=== PATIENT | male | born 1970 | race Caucasian/White ===

== ENCOUNTER 2022-01-01 22:21 | Emergency (ER) | payer MEDICAID ==
[2022-01-01] MEDS ORDERED: Ondansetron 4 MG/2 ML SDV IVPUSH ONE (22:29)
[2022-01-01] MEDS ORDERED: Lactated Ringers 1,000 ML IV ONE (22:30)
[2022-01-01] MEDS ORDERED: Morphine 4 MG/ML Syringe IVPUSH ONE (22:36)
[2022-01-01 23:18] LABS: ESTIMATED GFR 112 mL/min (>60)
[2022-01-02] MEDS ORDERED: HYDROmorphone 0.5 MG/0.5 ML Syringe IVPUSH ONE (00:07)
[2022-01-02] MEDS ORDERED: Lactated Ringers 1,000 ML IV ONE (00:16)
[2022-01-02] MEDS ORDERED: HYDROmorphone 1 MG/ML Syringe IVPUSH ONE (00:17)
[2022-01-02] MEDS ORDERED: Iopamidol 612 MG/ML 100 ML Bottle IV STA (00:17)
[2022-01-02] MEDS ORDERED: Sodium Chloride 0.9% 50 ML IV STA (00:17)
[2022-01-02] MEDS ORDERED: Potassium Chloride 20 MEQ Tab.ER PO ONE (01:59)
[2022-01-02] MEDS ORDERED: Pantoprazole 40 MG Tab.CR PO SCH (02:00)
== END 2022-01-02 02:20 | disposition home or self-care (01) ==
LOC: JP.ED 22:21
DX: K86.1 Other chronic pancreatitis (principal); E11.65 Type 2 diabetes mellitus with hyperglycemia; K59.00 Constipation, unspecified; F10.920 Alcohol use, unspecified with intoxication, uncomplicated; Z79.899 Other long term (current) drug therapy
CPT/HCPCS: 36415; 74177; 80053; 80305; 80307; 81003; 82009; 82803; 83690; 85025; 96361; 96374; 96375; 99284; J1170; J2270; J2405; J3490; J7120; Q9967; 99283

== ENCOUNTER 2022-01-03 15:56 | Emergency (ER) | payer MEDICAID ==
[2022-01-03] MEDS ORDERED: Sodium Chloride 0.9% 10 ML Syringe FLUSH PRN (17:36)
[2022-01-03] MEDS ORDERED: HYDROmorphone 1 MG/ML Syringe IVPUSH ONE (17:37)
[2022-01-03] MEDS ORDERED: Ondansetron 4 MG/2 ML SDV IVPUSH ONE (17:37)
[2022-01-03] MEDS ORDERED: Sodium Chloride 0.9% 1,000 ML IV ONE (17:37)
[2022-01-03 18:14] LABS: ESTIMATED GFR 112 mL/min (>60)
[2022-01-03] MEDS ORDERED: HYDROmorphone 0.5 MG/0.5 ML Syringe IVPUSH ONE (19:48)
[2022-01-03] MEDS ORDERED: Ketorolac 30 MG/ML SDV IVPUSH ONE (19:50)
[2022-01-03] MEDS ORDERED: Pantoprazole 40 MG Tab.CR PO SCH (20:00)
== END 2022-01-03 20:25 | disposition home or self-care (01) ==
LOC: JP.ED 15:56
DX: K86.0 Alcohol-induced chronic pancreatitis (principal); F10.129 Alcohol abuse with intoxication, unspecified; S00.03XA Contusion of scalp, initial encounter; Y90.4 Blood alcohol level of 80-99 mg/100 ml; R10.13 Epigastric pain; E11.9 Type 2 diabetes mellitus without complications; Z79.84 Long term (current) use of oral hypoglycemic drugs
CPT/HCPCS: 36415; 70450; 80053; 80307; 83690; 85025; 96361; 96374; 96375; 96376; 99284; 99285; A9270; J1170; J1885; J2405; J3490; J7030

== ENCOUNTER 2022-02-05 12:54 | Emergency (ER) | payer MEDICAID ==
[2022-02-05] MEDS ORDERED: Sodium Chloride 0.9% 500 ML IV ONE (15:39)
[2022-02-05] MEDS ORDERED: Sodium Chloride 0.9% 10 ML Syringe FLUSH PRN (15:39)
[2022-02-05] MEDS ORDERED: Ondansetron 4 MG/2 ML SDV IVPUSH ONE (15:39)
[2022-02-05] MEDS ORDERED: HYDROmorphone 1 MG/ML Syringe IVPUSH ONE ×2 (15:39→17:45)
[2022-02-05] MEDS ORDERED: Famotidine 20 MG/2 ML SDV IVPUSH ONE (15:39)
[2022-02-05 16:18] LABS: ESTIMATED GFR 107 mL/min (>60)
[2022-02-05 16:23] LABS: TROPONIN I HIGH SENSITIVITY 5.8 pg/mL (<=60.3)
[2022-02-05] MEDS ORDERED: Alum Hydrox/Mag Hydrox/Simeth 15 ML, Lidocaine 2% 15 ML PO ONE ×2 (16:36)
[2022-02-05] MEDS ORDERED: Ketorolac 30 MG/ML SDV IVPUSH ONE (16:36)
[2022-02-05] MEDS ORDERED: Metoclopramide 10 MG/2 ML SDV IVPUSH ONE (17:45)
[2022-02-05] MEDS ORDERED: Sodium Chloride 0.9% 1,000 ML IV SCH (18:00)
== END 2022-02-05 18:41 | disposition home or self-care (01) ==
LOC: JP.ED 12:54
DX: K86.1 Other chronic pancreatitis (principal); E11.9 Type 2 diabetes mellitus without complications; Z79.899 Other long term (current) drug therapy; Z79.84 Long term (current) use of oral hypoglycemic drugs
CPT/HCPCS: 36415; 80053; 82150; 83690; 84484; 85025; 93005; 96374; 96375; 96376; 99284; A9270; J1170; J1885; J2405; J2765; J3490; J7040; 93010; 99283

== ENCOUNTER 2022-02-06 17:16 | Emergency (ER) | payer MEDICAID ==
[2022-02-06] MEDS ORDERED: Haloperidol Lactate 5 MG/ML SDV IVPUSH ONE (17:49)
[2022-02-06] MEDS ORDERED: HYDROmorphone 1 MG/ML Syringe IVPUSH ONE (17:49)
[2022-02-06] MEDS ORDERED: Sodium Chloride 0.9% 1,000 ML IV SCH (18:00)
[2022-02-06 18:22] LABS: ESTIMATED GFR 107 mL/min (>60)
== END 2022-02-06 18:50 | disposition left against medical advice (07) ==
LOC: JP.ED 17:16
DX: K86.1 Other chronic pancreatitis (principal); R11.2 Nausea with vomiting, unspecified; E11.65 Type 2 diabetes mellitus with hyperglycemia; F17.210 Nicotine dependence, cigarettes, uncomplicated; Z79.899 Other long term (current) drug therapy; Z79.84 Long term (current) use of oral hypoglycemic drugs; Z86.16 Personal history of COVID-19; Z20.822 Contact with and (suspected) exposure to COVID-19
CPT/HCPCS: 36415; 36600; 80053; 81001; 82009; 82803; 83690; 85025; 87635; 96361; 96374; 96375; 99284; J1170; J1630; J7030; U0002

== ENCOUNTER 2022-02-18 07:31 | Day surgery (SDC) | payer MEDICAID ==
[~2022-02-18 07:31] MED LIST: Lactated Ringers 1,000 ML IV SCH
[2022-02-18] MEDS ORDERED: Midazolam 1 MG/ML 2 ML SDV ONE (08:04)
[2022-02-18] MEDS ORDERED: Propofol 200 MG/20 ML SDV ONE (08:04)
[2022-02-18] MEDS ORDERED: fentaNYL 100 MCG/2 ML SDV ONE (08:04)
[2022-02-18] MEDS ORDERED: Dextrose 5%-Lactated Ringers 1,000 ML IV SCH (08:15)
== END 2022-02-18 11:10 | disposition home or self-care (01) ==
LOC: JP.SDS 07:31
PROVIDERS: ATTEND Family Medicine
DX: K92.1 Melena (principal); K29.60 Other gastritis without bleeding; E11.9 Type 2 diabetes mellitus without complications; E78.5 Hyperlipidemia, unspecified; F41.1 Generalized anxiety disorder
CPT/HCPCS: 43235; 45378; J2250; J2704; J3010; J7121

== ENCOUNTER 2022-03-18 17:23 | Emergency (ER) | payer MEDICAID ==
[2022-03-18] MEDS ORDERED: Sodium Chloride 0.9% 10 ML Syringe FLUSH PRN (19:15)
[2022-03-18] MEDS ORDERED: Sodium Chloride 0.9% 1,000 ML IV STA (19:15)
[2022-03-18] MEDS ORDERED: Ondansetron 4 MG/2 ML SDV IVPUSH ONE (19:16)
[2022-03-18] MEDS ORDERED: HYDROmorphone 1 MG/ML Syringe IVPUSH ONE ×2 (19:16→21:34)
[2022-03-18] MEDS ORDERED: Sodium Chloride 0.9% 75 ML IV SCH (19:45)
[2022-03-18] MEDS ORDERED: Iopamidol 612 MG/ML 100 ML Bottle IV SCH (19:45)
[2022-03-18 20:02] LABS: ESTIMATED GFR 107 mL/min (>60); TROPONIN I HIGH SENSITIVITY 5.1 pg/mL (<=60.3)
[2022-03-18] MEDS ORDERED: Prochlorperazine 10 MG/2 ML SDV IVPUSH ONE (21:34)
== END 2022-03-18 22:35 | disposition home or self-care (01) ==
LOC: JP.ED 17:23
DX: R10.13 Epigastric pain (principal); E11.9 Type 2 diabetes mellitus without complications; I10 Essential (primary) hypertension; F41.9 Anxiety disorder, unspecified; Z79.4 Long term (current) use of insulin
CPT/HCPCS: 36415; 74177; 80053; 80307; 83605; 83690; 84484; 85025; 96361; 96374; 96375; 96376; 99284; J0780; J1170; J2405; J3490; J7030; Q9967

== ENCOUNTER 2022-05-06 17:09 | Emergency (ER) | payer MEDICAID ==
[2022-05-06] MEDS ORDERED: Ketorolac 30 MG/ML SDV IVPUSH ONE (19:35)
[2022-05-06 20:06] LABS: ESTIMATED GFR 107 mL/min (>60)
== END 2022-05-06 20:17 | disposition left against medical advice (07) ==
LOC: JP.ED 17:09
DX: R10.84 Generalized abdominal pain (principal); R11.2 Nausea with vomiting, unspecified; E11.9 Type 2 diabetes mellitus without complications; F17.210 Nicotine dependence, cigarettes, uncomplicated
CPT/HCPCS: 36415; 80053; 83690; 85025; 99284

== ENCOUNTER 2022-05-13 05:51 | Day surgery (SDC) | payer MEDICAID ==
[2022-05-13] MEDS ORDERED: Sodium Chloride 0.9% 1,000 ML IV SCH (06:30)
[2022-05-13] MEDS ORDERED: Lidocaine 1% with EPINEPHrine 1:100,000 50 ML MDV ONE (06:42)
[2022-05-13] MEDS ORDERED: Bupivacaine 0.5% 50 ML MDV ONE (06:42)
[2022-05-13 07:09] LABS: ESTIMATED GFR 73 mL/min (>60)
[2022-05-13] MEDS ORDERED: metroNIDAZOLE/Normal Saline 500 MG in Premix Bag 1 BAG IV ONE (07:30)
[2022-05-13] MEDS ORDERED: ceFAZolin 2 GM in Sodium Chloride 0.9% 50 ML IV ONE (07:30)
[2022-05-13] MEDS ORDERED: Glycopyrrolate 0.2 MG/ML 5 ML MDV ONE (07:31)
[2022-05-13] MEDS ORDERED: Neostigmine Methylsulfate 1 MG/ML 5 ML Syringe ONE (07:31)
[2022-05-13] MEDS ORDERED: Dexamethasone 4 MG/ML SDV ONE (07:31)
[2022-05-13] MEDS ORDERED: Succinylcholine 200 MG/10 ML MDV ONE (07:31)
[2022-05-13] MEDS ORDERED: Rocuronium 50 MG/5 ML Vial ONE (07:31)
[2022-05-13] MEDS ORDERED: fentaNYL 250 MCG/5 ML SDV ONE (07:31)
[2022-05-13] MEDS ORDERED: Propofol 200 MG/20 ML SDV ONE (07:31)
[2022-05-13] MEDS ORDERED: Ondansetron 4 MG/2 ML SDV ONE (07:31)
[2022-05-13] MEDS ORDERED: Ropivacaine 32 ML, dexAMETHasone 8 MG, EPINEPHrine 0.4 MG, Sodium Chloride 0.9% 45.6 ML NERVRT SCH ×4 (07:45)
[2022-05-13] MEDS ORDERED: Scopolamine 1.5 MG Transdermal Patch TOP SCH (08:00)
[2022-05-13] MEDS ORDERED: Phenylephrine 1% 10 MG/ML SDV ONE (08:06)
[2022-05-13] MEDS ORDERED: hydrOXYzine HCL 100 MG/2 ML SDV IM ONE (09:16)
[2022-05-13] MEDS ORDERED: fentaNYL 50 MCG/ML SDV IVPUSH ONE (09:16)
[2022-05-13] MEDS ORDERED: Acetaminophen/HYDROcodone 325-5 MG Tab PO ONE (10:03)
== END 2022-05-13 10:45 | disposition home or self-care (01) ==
LOC: JP.SDS 05:51 → EEVIPCON 11:00
PROVIDERS: ATTEND Surgery
DX: K80.10 Calculus of gallbladder with chronic cholecystitis without obstruction (principal); E78.5 Hyperlipidemia, unspecified; K21.9 Gastro-esophageal reflux disease without esophagitis; E11.9 Type 2 diabetes mellitus without complications; Z79.899 Other long term (current) drug therapy
CPT/HCPCS: 36415; 47562; 80053; 82947; 85027; A9270; J0171; J0330; J0690; J1100; J2370; J2405; J2704; J2710; J2795; J3010; J3410; J3490; J7030; 88304

== ENCOUNTER 2022-07-14 11:39 | Emergency (ER) | payer MEDICAID ==
[2022-07-14] MEDS ORDERED: Ondansetron 4 MG/2 ML SDV IVPUSH ONE (12:04)
[2022-07-14] MEDS ORDERED: HYDROmorphone 1 MG/ML Syringe IVPUSH ONE (12:04)
[2022-07-14] MEDS ORDERED: Sodium Chloride 0.9% 1,000 ML IV ONE (12:07)
[2022-07-14] MEDS: Sodium Chloride 0.9% 10 ML Syringe FLUSH PRN ×2 (12:20→12:25)
[2022-07-14] MEDS ORDERED: Iopamidol 612 MG/ML 100 ML Bottle IV ONE (12:28)
[2022-07-14] MEDS ORDERED: Sodium Chloride 0.9% 50 ML IV SCH (12:30)
[2022-07-14 12:42] LABS: ESTIMATED GFR 107 mL/min (>60)
[2022-07-14] MEDS ORDERED: Prochlorperazine 10 MG/2 ML SDV IVPUSH ONE (12:42)
[2022-07-14] MEDS ORDERED: Magnesium Sulfate/Water 2 GM in Premix Bag 1 BAG IV ONE (12:44)
[2022-07-14] MEDS ORDERED: Lidocaine 1% PF 2 ML SDV IV SCH (12:45)
[2022-07-14] MEDS ORDERED: Potassium Chloride 20 MEQ in Premix Bag 1 BAG IV SCH (13:00)
[2022-07-14] MEDS ORDERED: Ketorolac 30 MG/ML SDV IVPUSH ONE (13:05)
[2022-07-14] MEDS: Potassium Chloride 10 MEQ in Premix Bag 1 BAG IV SCH ×4 (13:47→18:04)
== END 2022-07-14 19:09 | disposition home or self-care (01) ==
LOC: JP.ED 11:39
DX: K86.1 Other chronic pancreatitis (principal); E86.0 Dehydration; E87.5 Hyperkalemia; R11.2 Nausea with vomiting, unspecified; E11.9 Type 2 diabetes mellitus without complications; E78.00 Pure hypercholesterolemia, unspecified; F17.210 Nicotine dependence, cigarettes, uncomplicated; Z86.16 Personal history of COVID-19; Z20.822 Contact with and (suspected) exposure to COVID-19
CPT/HCPCS: 36415; 74177; 80053; 81001; 83605; 83690; 83735; 85025; 87635; 96361; 96365; 96366; 96367; 96368; 96375; 99284; J0780; J1170; J1885; J2405; J3475; J3480; J3490; J7030; Q9967; U0002

== ENCOUNTER 2022-10-01 08:45 | Day surgery (SDC) | payer MEDICAID ==
[2022-10-01] MEDS ORDERED: Midazolam 1 MG/ML 2 ML SDV ONE (08:46)
[2022-10-01] MEDS ORDERED: fentaNYL 100 MCG/2 ML SDV ONE (08:46)
[2022-10-01] MEDS ORDERED: Propofol 200 MG/20 ML SDV ONE (08:46)
[2022-10-01] MEDS ORDERED: Sodium Chloride 0.9% 1,000 ML IV SCH (09:15)
== END 2022-10-01 11:03 | disposition home or self-care (01) ==
LOC: JP.SDS 08:45
PROVIDERS: ATTEND Surgery
DX: Z12.11 Encounter for screening for malignant neoplasm of colon (principal); E11.9 Type 2 diabetes mellitus without complications; E78.5 Hyperlipidemia, unspecified; Z79.899 Other long term (current) drug therapy
CPT/HCPCS: 45378; J2250; J2704; J3010; J7030

== ENCOUNTER 2022-10-25 09:13 | Observation (INO) | payer MEDICAID ==
[2022-10-25] MEDS ORDERED: Ondansetron 4 MG/2 ML SDV IVPUSH ONE (09:46)
[2022-10-25] MEDS ORDERED: Sodium Chloride 0.9% 1,000 ML IV SCH ×2 (10:00→11:30)
[2022-10-25] MEDS: Sodium Chloride 0.9% 10 ML Syringe FLUSH PRN ×5 (10:06→13:02)
[2022-10-25 10:29] LABS: ESTIMATED GFR 91 mL/min (>60)
[2022-10-25] MEDS ORDERED: Potassium Chloride 10 MEQ in Premix Bag 1 BAG IV ONE (10:41)
[2022-10-25] MEDS ORDERED: Potassium Chloride 20 MEQ Tab.ER PO ONE (10:42)
[2022-10-25 10:50] LABS: CORONAVIRUS COVID-19 NAA NEGATIVE (NEGATIVE)
[2022-10-25] MEDS ORDERED: HYDROmorphone 0.5 MG/0.5 ML Syringe IVPUSH ONE (10:56)
[2022-10-25] MEDS ORDERED: Iopamidol 612 MG/ML 100 ML Bottle IV PRN (11:04)
[2022-10-25] MEDS ORDERED: Sodium Chloride 0.9% 10 ML SDV FLUSH ONE (11:04)
[2022-10-25] MEDS ORDERED: Sodium Chloride 0.9% 100 ML IV SCH (11:15)
[2022-10-25] MEDS ORDERED: Haloperidol Lactate 5 MG/ML SDV IVPUSH ONE (12:38)
[2022-10-25] MEDS ORDERED: HYDROmorphone 1 MG/ML Syringe IVPUSH ONE (12:44)
[2022-10-25] MEDS ORDERED: LORazepam 2 MG/ML SDV IV PRN (13:50)
[2022-10-25] MEDS ORDERED: Ondansetron 4 MG/2 ML SDV IV PRN (13:50)
[2022-10-25] MEDS ORDERED: Sodium Chloride 0.9% 10 ML Syringe FLUSH PRN (13:50)
[2022-10-25] MEDS ORDERED: 50% Dextrose in Water 50 ML Syringe IV PRN (13:50)
[2022-10-25] MEDS ORDERED: Acetaminophen 325 MG Tab PO PRN (13:50)
[2022-10-25] MEDS ORDERED: 50% Dextrose in Water 50 ML Syringe IVPUSH PRN (13:50)
[2022-10-25] MEDS ORDERED: Glucagon,Human Recombinant 1 MG Vial IM PRN (13:50)
[2022-10-25] MEDS ORDERED: Glucose Gel 15 GM in 37.5 GM Tube PO PRN (13:50)
[2022-10-25] MEDS ORDERED: Diclofenac Sodium 1% Gel 100 GM Tube TOP PRN (13:50)
[2022-10-25] MEDS ORDERED: HYDROmorphone 0.5 MG/0.5 ML Syringe IVPUSH PRN (14:14)
[2022-10-25] MEDS ORDERED: Nicotine Polacrilex 2 MG Gum CHEW PRN (14:14)
[2022-10-25] MEDS: Sodium Chloride 0.9% 1,000 ML IV SCH ×2 (14:15→21:31)
[2022-10-25] MEDS: Pregabalin 75 MG Cap PO SCH ×2 (14:21→21:26)
[2022-10-25] MEDS: Potassium Chloride 10 MEQ in Premix Bag 1 BAG IV SCH ×4 (15:16→17:23)
[2022-10-25] MEDS: Nicotine 14 MG/24 Hr Patch TRDERM SCH (15:16)
[2022-10-25] MEDS: oxyCODONE 5 MG Tab PO PRN (15:23)
[2022-10-25] MEDS ORDERED: Enoxaparin 40 MG/0.4 ML Syringe SUBCUT SCH (16:00)
[2022-10-25] MEDS: Pantoprazole 40 MG Tab.CR PO SCH (16:26)
[2022-10-25] MEDS: Insulin Lispro 100 Unit/ML 3 ML KwikPen SUBCUT SCH ×2 (17:25→21:27)
[2022-10-25] MEDS: Amylase/Lipase/Protease 12,000 Unit Cap.CR PO SCH (17:25)
[2022-10-25] MEDS ORDERED: Insulin Glargine,Human Rec. Analog 100 Units/ML 3 ML Pen SUBCUT SCH (21:00)
[2022-10-25] MEDS: Morphine 15 MG Tab.ER PO SCH (21:26)
[2022-10-26] MEDS: oxyCODONE 5 MG Tab PO PRN ×2 (04:59→11:41)
[2022-10-26] MEDS: Sodium Chloride 0.9% 1,000 ML IV SCH (06:28)
[2022-10-26] MEDS: Insulin Lispro 100 Unit/ML 3 ML KwikPen SUBCUT SCH ×2 (07:29→11:40)
[2022-10-26] MEDS: Amylase/Lipase/Protease 12,000 Unit Cap.CR PO SCH ×2 (07:32→11:42)
[2022-10-26] MEDS: Pantoprazole 40 MG Tab.CR PO SCH (07:32)
[2022-10-26] MEDS: Morphine 15 MG Tab.ER PO SCH (08:21)
[2022-10-26] MEDS: Pregabalin 75 MG Cap PO SCH (08:21)
[2022-10-26] MEDS: Nicotine 14 MG/24 Hr Patch TRDERM SCH (08:21)
== END 2022-10-26 13:55 | disposition home or self-care (01) ==
LOC: JP.ED 09:13 → JP.MS 13:06
PROVIDERS: ADMIT Hospitalist; ATTEND Hospitalist
DX: K52.9 Noninfective gastroenteritis and colitis, unspecified (principal); E87.6 Hypokalemia; E78.00 Pure hypercholesterolemia, unspecified; E11.40 Type 2 diabetes mellitus with diabetic neuropathy, unspecified; Z79.899 Other long term (current) drug therapy; F41.9 Anxiety disorder, unspecified; F17.210 Nicotine dependence, cigarettes, uncomplicated; Z87.19 Personal history of other diseases of the digestive system; Z79.4 Long term (current) use of insulin; Z20.822 Contact with and (suspected) exposure to COVID-19
CPT/HCPCS: 0241U; 36415; 74177; 80048; 80053; 81001; 82009; 82803; 82947; 83605; 83690; 85025; 86140; 96361; 96365; 96366; 96372; 96375; 96376; 99222; 99238; 99285; A9270; G0378; J1170; J1630; J1650; J1815; J2405; J3480; J3490; J7030; Q9967

== ENCOUNTER 2022-11-08 19:22 | Emergency (ER) | payer MEDICAID ==
[2022-11-08] MEDS ORDERED: Sodium Chloride 0.9% 10 ML Syringe FLUSH PRN (20:10)
[2022-11-08] MEDS ORDERED: HYDROmorphone 1 MG/ML Syringe IVPUSH ONE (20:11)
[2022-11-08] MEDS ORDERED: Ondansetron 4 MG/2 ML SDV IVPUSH ONE ×2 (20:11→22:25)
[2022-11-08] MEDS ORDERED: Lactated Ringers 1,000 ML IV SCH (20:15)
[2022-11-08 20:43] LABS: ESTIMATED GFR 103 mL/min (>60)
[2022-11-08] MEDS ORDERED: HYDROmorphone 0.5 MG/0.5 ML Syringe IVPUSH ONE (22:03)
[2022-11-08] MEDS ORDERED: fentaNYL 12 MCG/HR Transdermal Patch TRDERM SCH (22:15)
== END 2022-11-08 22:48 | disposition home or self-care (01) ==
LOC: JP.ED 19:22
DX: R10.9 Unspecified abdominal pain (principal); G89.29 Other chronic pain; E11.40 Type 2 diabetes mellitus with diabetic neuropathy, unspecified; Z86.16 Personal history of COVID-19; Z72.0 Tobacco use; Z79.4 Long term (current) use of insulin
CPT/HCPCS: 36415; 80053; 81001; 83605; 83690; 85025; 96361; 96374; 96375; 96376; 99284; A9270; J1170; J2405; J3490; J7120; 99283

== ENCOUNTER 2022-11-18 08:07 | Day surgery (SDC) | payer MEDICAID ==
[2022-11-18] MEDS ORDERED: Sodium Chloride 0.9% 1,000 ML IV SCH (09:00)
[2022-11-18] MEDS ORDERED: Midazolam 1 MG/ML 2 ML SDV ONE (09:40)
[2022-11-18] MEDS ORDERED: fentaNYL 50 MCG/ML SDV ONE (09:40)
[2022-11-18] MEDS ORDERED: Propofol 200 MG/20 ML SDV ONE (09:40)
[2022-11-18] MEDS ORDERED: Morphine 2 MG/ML SYRINGE IVPUSH PRN (10:50)
== END 2022-11-18 11:30 | disposition home or self-care (01) ==
LOC: JP.SDS 08:07
PROVIDERS: ATTEND Surgery
DX: K31.84 Gastroparesis (principal); K29.70 Gastritis, unspecified, without bleeding; K21.00 Gastro-esophageal reflux disease with esophagitis, without bleeding; K22.89 Other specified disease of esophagus; I95.9 Hypotension, unspecified; E11.9 Type 2 diabetes mellitus without complications
CPT/HCPCS: 43239; 88305; J2250; J2270; J2704; J3010; J7030

== ENCOUNTER 2023-04-18 15:05 | Emergency (ER) | payer MEDICAID, OTHER ==
[2023-04-18] MEDS ORDERED: Sodium Chloride 0.9% 10 ML Syringe FLUSH PRN (15:31)
[2023-04-18 15:46] LABS: BASOPHILS ABSOLUTE AUTO 0.07 K/uL (0.00-0.10); BASOPHILS PERCENT AUTO 0.6 % (0.1-1.3); EOSINOPHILS ABSOLUTE AUTO 0.13 K/uL (0.00-0.40); EOSINOPHILS PERCENT AUTO 1.2 % (0.0-5.4); HEMATOCRIT 44.7 % (38.4-49.7); IMMATURE GRAN ABSOLUTE AUTO 0.03 K/uL (0.00-0.23); IMMATURE GRAN PERCENT AUTO 0.3 % (0.0-0.7); LYMPHOCYTES ABSOLUTE AUTO 1.99 K/uL (0.8-3.3); LYMPHOCYTES PERCENT AUTO 18.1 % (11.4-47.7); MEAN CORPUSCULAR HEMOGLOBIN 30.5 pg (31.6-35.5); MEAN CORPUSCULAR HGB CONC 33.6 g/dL (31.6-35.5); MONOCYTES ABSOLUTE AUTO 0.87 K/uL (0.20-0.90); MONOCYTES PERCENT AUTO 7.9 % (3.3-12.6); NEUTROPHILS ABSOLUTE AUTO 7.89 K/uL (1.0-7.6); NEUTROPHILS PERCENT AUTO 71.9 % (40.0-78.1); PLATELET COUNT,PLT 255 K/uL (130-375); RED BLOOD CELL COUNT 4.91 M/uL (4.14-5.76)
[2023-04-18] MEDS: Metoclopramide 10 MG/2 ML SDV IVPUSH ONE (15:51)
[2023-04-18 16:07] LABS: A/G RATIO 1.2 (1.2-2.2); ALANINE AMINOTRANSFERASE,ALT 36 U/L (12-78); ALKALINE PHOSPHATASE 127 U/L (46-116); AMYLASE 37 U/L (25-115); ANION GAP 9.5 mmol/L (5.0-14.0); ASPARTATE AMNIOTRANSFERASE,AST 24 U/L (15-37); BILIRUBIN TOTAL 0.4 mg/dL (0.2-1.0); BLOOD UREA NITROGEN,BUN 9 mg/dL (7-18); CALCIUM 9.1 mg/dL (8.5-10.1); CARBON DIOXIDE,CO2 30 mmol/L (21-32); CHLORIDE,CL 101 mmol/L (100-108); CREATININE 0.8 mg/dL (0.8-1.3); EST CRCL DRUG DOSING (CG) 97.02 mL/min; ESTIMATED GFR 106 mL/min (>60); GLUCOSE RANDOM 183 mg/dL (74-106); POTASSIUM,K 4.4 mmol/L (3.6-5.2); PROTEIN TOTAL,TP 7.4 g/dL (6.4-8.2); SODIUM,NA 140 mmol/L (140-148)
== END 2023-04-18 16:27 | disposition left against medical advice (07) ==
LOC: JP.ED 15:05
DX: K52.9 Noninfective gastroenteritis and colitis, unspecified (principal); E11.40 Type 2 diabetes mellitus with diabetic neuropathy, unspecified; Z86.16 Personal history of COVID-19; Z72.0 Tobacco use; Z79.4 Long term (current) use of insulin; Z79.899 Other long term (current) drug therapy
CPT/HCPCS: 36415; 80053; 80307; 82150; 83605; 83690; 85025; 96374; 99283; 99284; J2765; J3490

== ENCOUNTER 2024-04-16 17:51 | Emergency (ER) | payer MEDICAID, SELFPAY ==
[2024-04-16 18:52] LABS: BASOPHILS ABSOLUTE AUTO 0.04 K/uL (0.00-0.10); BASOPHILS PERCENT AUTO 0.6 % (0.1-1.3); EOSINOPHILS ABSOLUTE AUTO 0.05 K/uL (0.00-0.40); EOSINOPHILS PERCENT AUTO 0.7 % (0.0-5.4); HEMATOCRIT 39.1 % (38.4-49.7); HEMOGLOBIN 13.4 g/dL (12.9-16.9); IMMATURE GRAN PERCENT AUTO 0.3 % (0.0-0.7); LYMPHOCYTES ABSOLUTE AUTO 1.63 K/uL (0.8-3.3); LYMPHOCYTES PERCENT AUTO 24.4 % (11.4-47.7); MEAN CORPUSCULAR HGB CONC 34.3 g/dL (31.6-35.5); MEAN CORPUSCULAR VOLUME 81.8 fL (81.4-99.0); MONOCYTES ABSOLUTE AUTO 0.58 K/uL (0.20-0.90); MONOCYTES PERCENT AUTO 8.7 % (3.3-12.6); NEUTROPHILS ABSOLUTE AUTO 4.37 K/uL (1.0-7.6); NEUTROPHILS PERCENT AUTO 65.3 % (40.0-78.1); PLATELET COUNT,PLT 355 K/uL (130-375); RED BLOOD CELL COUNT 4.78 M/uL (4.14-5.76); WHITE BLOOD CELL COUNT,WBC 6.7 K/uL (3.2-11.0)
[2024-04-16] MEDS: Ketorolac 30 MG/ML SDV IM ONE (18:52)
[2024-04-16 19:08] LABS: IMMATURE GRAN ABSOLUTE AUTO 0.02 K/uL (0.00-0.23)
[2024-04-16 19:09] LABS: ANION GAP 8.3 mmol/L (5.0-14.0); C-REACTIVE PROTEIN 0.58 mg/dL (<0.50); CALCIUM 9.6 mg/dL (8.5-10.1); CREATININE 0.8 mg/dL (0.8-1.3); EST CRCL DRUG DOSING (CG) 109.62 mL/min; POTASSIUM,K 3.7 mmol/L (3.6-5.2)
[2024-04-16] MEDS ORDERED: Naloxone 0.4 MG/ML SDV IVPUSH PRN (19:56)
[2024-04-16] MEDS: HYDROmorphone 0.5 MG/0.5 ML Syringe IM ONE (20:08)
== END 2024-04-16 22:43 | disposition home or self-care (01) ==
LOC: JP.ED 17:51
DX: M17.11 Unilateral primary osteoarthritis, right knee (principal); E11.40 Type 2 diabetes mellitus with diabetic neuropathy, unspecified; E78.00 Pure hypercholesterolemia, unspecified; F17.210 Nicotine dependence, cigarettes, uncomplicated; Z86.16 Personal history of COVID-19; Z79.899 Other long term (current) drug therapy; Z79.4 Long term (current) use of insulin; Z79.82 Long term (current) use of aspirin
CPT/HCPCS: 36415; 73562; 80048; 85025; 85379; 86140; 93971; 96372; 99284; J1885

== ENCOUNTER 2024-04-17 10:46 | Emergency (ER) | payer MEDICAID ==
[2024-04-17] MEDS ORDERED: Naloxone 0.4 MG/ML SDV IVPUSH PRN (11:32)
[2024-04-17] MEDS: HYDROmorphone 1 MG/ML Syringe IM ONE (11:38)
== END 2024-04-17 11:57 | disposition home or self-care (01) ==
LOC: JP.ED 10:46
DX: M17.11 Unilateral primary osteoarthritis, right knee (principal); E78.00 Pure hypercholesterolemia, unspecified; E11.40 Type 2 diabetes mellitus with diabetic neuropathy, unspecified; Z86.16 Personal history of COVID-19; Z90.49 Acquired absence of other specified parts of digestive tract; Z79.4 Long term (current) use of insulin; Z79.82 Long term (current) use of aspirin; Z79.899 Other long term (current) drug therapy
CPT/HCPCS: 96372; 99283

== ENCOUNTER 2024-05-15 20:12 | Emergency (ER) | payer MEDICAID ==
[2024-05-15] MEDS: Sodium Chloride 0.9% 1,000 ML IV STA (20:21)
[2024-05-15] MEDS: fentaNYL 100 MCG/2 ML SDV IVPUSH ONE ×2 (20:21→21:21)
[2024-05-15 20:22] LABS: BASOPHILS ABSOLUTE AUTO 0.07 K/uL (0.00-0.10); BASOPHILS PERCENT AUTO 0.8 % (0.1-1.3); EOSINOPHILS ABSOLUTE AUTO 0.12 K/uL (0.00-0.40); EOSINOPHILS PERCENT AUTO 1.4 % (0.0-5.4); HEMATOCRIT 37.9 % (38.4-49.7); HEMOGLOBIN 12.7 g/dL (12.9-16.9); IMMATURE GRAN ABSOLUTE AUTO 0.03 K/uL (0.00-0.23); IMMATURE GRAN PERCENT AUTO 0.3 % (0.0-0.7); LYMPHOCYTES ABSOLUTE AUTO 3.34 K/uL (0.8-3.3); LYMPHOCYTES PERCENT AUTO 37.7 % (11.4-47.7); MEAN CORPUSCULAR HEMOGLOBIN 29.1 pg (31.6-35.5); MEAN CORPUSCULAR HGB CONC 33.5 g/dL (31.6-35.5); MEAN CORPUSCULAR VOLUME 86.9 fL (81.4-99.0); MONOCYTES ABSOLUTE AUTO 0.87 K/uL (0.20-0.90); MONOCYTES PERCENT AUTO 9.8 % (3.3-12.6); NEUTROPHILS ABSOLUTE AUTO 4.43 K/uL (1.0-7.6); PLATELET COUNT,PLT 282 K/uL (130-375); RED BLOOD CELL COUNT 4.36 M/uL (4.14-5.76); WHITE BLOOD CELL COUNT,WBC 8.9 K/uL (3.2-11.0)
[2024-05-15] MEDS: Sodium Chloride 0.9% 10 ML Syringe FLUSH PRN (20:24)
[2024-05-15 20:40] LABS: A/G RATIO 0.9 (1.2-2.2); ALANINE AMINOTRANSFERASE,ALT 32 U/L (12-78); ALBUMIN 3.1 g/dL (3.4-5.0); ALKALINE PHOSPHATASE 146 U/L (46-116); ASPARTATE AMNIOTRANSFERASE,AST 15 U/L (15-37); BILIRUBIN TOTAL 0.2 mg/dL (0.2-1.0); BLOOD UREA NITROGEN,BUN 10 mg/dL (7-18); CARBON DIOXIDE,CO2 29 mmol/L (21-32); CHLORIDE,CL 104 mmol/L (100-108); EST CRCL DRUG DOSING (CG) 87.69 mL/min; ESTIMATED GFR 90 mL/min (>60); GLUCOSE RANDOM 234 mg/dL (74-106); POTASSIUM,K 4.2 mmol/L (3.6-5.2); PROTEIN TOTAL,TP 6.4 g/dL (6.4-8.2); SODIUM,NA 139 mmol/L (140-148); TROPONIN I HIGH SENSITIVITY 4.3 pg/mL (<=60.3)
[2024-05-15 20:42] LABS: ANION GAP 10.2 mmol/L (5.0-14.0)
[2024-05-15] MEDS: Iopamidol 612 MG/ML 100 ML Bottle IV SCH (21:36)
[2024-05-15] MEDS: Sodium Chloride 0.9% 60 ML IV SCH (21:36)
[2024-05-15] MEDS: Sodium Chloride 0.9% 1,000 ML IV SCH (22:08)
== END 2024-05-15 23:35 | disposition home or self-care (01) ==
LOC: JP.ED 20:12
DX: K52.9 Noninfective gastroenteritis and colitis, unspecified (principal); I10 Essential (primary) hypertension; I25.10 Atherosclerotic heart disease of native coronary artery without angina pectoris; E78.00 Pure hypercholesterolemia, unspecified; E11.9 Type 2 diabetes mellitus without complications; Z90.49 Acquired absence of other specified parts of digestive tract; Z86.16 Personal history of COVID-19; Z79.899 Other long term (current) drug therapy; Z79.82 Long term (current) use of aspirin; Z79.4 Long term (current) use of insulin; Z79.891 Long term (current) use of opiate analgesic
CPT/HCPCS: 36415; 74177; 80053; 83605; 83690; 84484; 85025; 96361; 96374; 96376; 99284; 99285; J3010; J3490; J7030; Q9967

== ENCOUNTER 2024-07-02 11:56 | Emergency (ER) | payer MEDICAID ==
[2024-07-02 12:33] LABS: APPEARANCE,URINE CLEAR (CLEAR); BILIRUBIN,URINE NEGATIVE (NEGATIVE); COLOR,URINE YELLOW (YELLOW); GLUCOSE,URINE 250 mg/dL (NEGATIVE); KETONES,URINE NEGATIVE (NEGATIVE); LEUKOCYTE ESTERASE,URINE NEGATIVE (NEGATIVE); NITRITE,URINE NEGATIVE (NEGATIVE); OCCULT BLOOD,URINE NEGATIVE (NEGATIVE); PROTEIN,URINE NEGATIVE (NEGATIVE); UROBILINOGEN,URINE 0.2 EU/dL (0.2-1.0)
[2024-07-02 12:41] LABS: AMORPHOUS SEDIMENT,URINE RARE; BACTERIA,URINE NOT SEEN; EPITHELIAL CELLS,URINE NOT SEEN; MUCUS,URINE NOT SEEN; RBC,URINE NOT SEEN (0-5); WBC,URINE NOT SEEN (0-5)
[2024-07-02 12:50] LABS: BASOPHILS ABSOLUTE AUTO 0.04 K/uL (0.00-0.10); BASOPHILS PERCENT AUTO 0.6 % (0.1-1.3); EOSINOPHILS ABSOLUTE AUTO 0.12 K/uL (0.00-0.40); EOSINOPHILS PERCENT AUTO 1.8 % (0.0-5.4); HEMATOCRIT 39.2 % (38.4-49.7); HEMOGLOBIN 13.2 g/dL (12.9-16.9); IMMATURE GRAN PERCENT AUTO 0.2 % (0.0-0.7); LYMPHOCYTES ABSOLUTE AUTO 1.58 K/uL (0.8-3.3); LYMPHOCYTES PERCENT AUTO 24.2 % (11.4-47.7); MEAN CORPUSCULAR HEMOGLOBIN 29.7 pg (31.6-35.5); MEAN CORPUSCULAR HGB CONC 33.7 g/dL (31.6-35.5); MEAN CORPUSCULAR VOLUME 88.1 fL (81.4-99.0); MONOCYTES ABSOLUTE AUTO 0.61 K/uL (0.20-0.90); MONOCYTES PERCENT AUTO 9.3 % (3.3-12.6); NEUTROPHILS ABSOLUTE AUTO 4.18 K/uL (1.0-7.6); NEUTROPHILS PERCENT AUTO 63.9 % (40.0-78.1); PLATELET COUNT,PLT 328 K/uL (130-375); RED BLOOD CELL COUNT 4.45 M/uL (4.14-5.76); WHITE BLOOD CELL COUNT,WBC 6.5 K/uL (3.2-11.0)
[2024-07-02 12:51] LABS: IMMATURE GRAN ABSOLUTE AUTO 0.01 K/uL (0.00-0.23)
[2024-07-02] MEDS: Sodium Chloride 0.9% 1,000 ML IV STA (12:52)
[2024-07-02] MEDS: Morphine 2 MG/ML SYRINGE IVPUSH ONE ×2 (12:52→13:59)
[2024-07-02] MEDS: Promethazine 12.5 MG in Sodium Chloride 0.9% 50 ML IV ONE (12:55)
[2024-07-02 13:11] LABS: ALANINE AMINOTRANSFERASE,ALT 32 U/L (12-78); ALBUMIN 3.3 g/dL (3.4-5.0); ALKALINE PHOSPHATASE 171 U/L (46-116); ASPARTATE AMNIOTRANSFERASE,AST 21 U/L (15-37); BILIRUBIN TOTAL 0.3 mg/dL (0.2-1.0); BLOOD UREA NITROGEN,BUN 8 mg/dL (7-18); CALCIUM 8.8 mg/dL (8.5-10.1); CARBON DIOXIDE,CO2 28 mmol/L (21-32); CHLORIDE,CL 102 mmol/L (100-108); CREATININE 0.9 mg/dL (0.8-1.3); EST CRCL DRUG DOSING (CG) 100.96 mL/min; ESTIMATED GFR 102 mL/min (>60); GLUCOSE RANDOM 228 mg/dL (74-106); POTASSIUM,K 4.2 mmol/L (3.6-5.2); PROTEIN TOTAL,TP 6.7 g/dL (6.4-8.2); SODIUM,NA 138 mmol/L (140-148)
[2024-07-02 13:12] LABS: ANION GAP 12.2 mmol/L (5.0-14.0)
[2024-07-02] MEDS ORDERED: MVI, Adult with Vitamin K 10 ML, Thiamine 100 MG, Folic Acid 1 MG, Magnesium Sulfate 3 ... IV SCH (13:30)
[2024-07-02] MEDS: MVI, Adult with Vitamin K 10 ML, Thiamine 100 MG, Folic Acid 1 MG, Magnesium Sulfate 3 ... IV ONE (13:44)
[2024-07-02] MEDS: Morphine 15 MG Tab.ER PO SCH (14:02)
[2024-07-02] MEDS ORDERED: Promethazine 12.5 MG in Sodium Chloride 0.9% 50 ML IV ONE (14:52)
[2024-07-02] MEDS: Prochlorperazine 10 MG/2 ML SDV IVPUSH ONE (15:42)
== END 2024-07-02 16:00 | disposition home or self-care (01) ==
LOC: JP.ED 11:56
DX: E11.65 Type 2 diabetes mellitus with hyperglycemia (principal); E11.43 Type 2 diabetes mellitus with diabetic autonomic (poly)neuropathy; K31.84 Gastroparesis; E78.00 Pure hypercholesterolemia, unspecified; I25.10 Atherosclerotic heart disease of native coronary artery without angina pectoris; K21.9 Gastro-esophageal reflux disease without esophagitis; Z90.49 Acquired absence of other specified parts of digestive tract; F17.210 Nicotine dependence, cigarettes, uncomplicated; Z79.4 Long term (current) use of insulin; Z79.82 Long term (current) use of aspirin; Z79.899 Other long term (current) drug therapy
CPT/HCPCS: 36415; 80053; 81001; 83690; 85025; 93005; 96361; 96365; 96366; 96375; 96376; 99284; A9270; J0780; J2270; J2550; J3411; J3490; J7030; 93010

== ENCOUNTER 2024-08-10 10:02 | Emergency (ER) | payer MEDICAID ==
[2024-08-10 10:25] LABS: BASOPHILS ABSOLUTE AUTO 0.07 K/uL (0.00-0.10); BASOPHILS PERCENT AUTO 0.9 % (0.1-1.3); EOSINOPHILS ABSOLUTE AUTO 0.08 K/uL (0.00-0.40); EOSINOPHILS PERCENT AUTO 1.1 % (0.0-5.4); HEMATOCRIT 42.4 % (38.4-49.7); HEMOGLOBIN 14.3 g/dL (12.9-16.9); IMMATURE GRAN PERCENT AUTO 0.3 % (0.0-0.7); LYMPHOCYTES ABSOLUTE AUTO 1.26 K/uL (0.8-3.3); LYMPHOCYTES PERCENT AUTO 16.9 % (11.4-47.7); MEAN CORPUSCULAR HEMOGLOBIN 30.2 pg (31.6-35.5); MEAN CORPUSCULAR HGB CONC 33.7 g/dL (31.6-35.5); MEAN CORPUSCULAR VOLUME 89.6 fL (81.4-99.0); MONOCYTES ABSOLUTE AUTO 0.47 K/uL (0.20-0.90); MONOCYTES PERCENT AUTO 6.3 % (3.3-12.6); NEUTROPHILS ABSOLUTE AUTO 5.54 K/uL (1.0-7.6); NEUTROPHILS PERCENT AUTO 74.5 % (40.0-78.1); PLATELET COUNT,PLT 276 K/uL (130-375); RED BLOOD CELL COUNT 4.73 M/uL (4.14-5.76); WHITE BLOOD CELL COUNT,WBC 7.4 K/uL (3.2-11.0)
[2024-08-10 10:27] LABS: IMMATURE GRAN ABSOLUTE AUTO 0.02 K/uL (0.00-0.23)
[2024-08-10] MEDS ORDERED: Naloxone 0.4 MG/ML SDV IVPUSH PRN (10:33)
[2024-08-10 10:46] LABS: A/G RATIO 1.1 (1.2-2.2); ALANINE AMINOTRANSFERASE,ALT 27 U/L (12-78); ALBUMIN 3.7 g/dL (3.4-5.0); ALKALINE PHOSPHATASE 161 U/L (46-116); ASPARTATE AMNIOTRANSFERASE,AST 25 U/L (15-37); BILIRUBIN TOTAL 0.5 mg/dL (0.2-1.0); BLOOD UREA NITROGEN,BUN 7 mg/dL (7-18); CALCIUM 8.8 mg/dL (8.5-10.1); CARBON DIOXIDE,CO2 26 mmol/L (21-32); CHLORIDE,CL 103 mmol/L (100-108); CREATININE 0.9 mg/dL (0.8-1.3); ESTIMATED GFR 102 mL/min (>60); GLUCOSE RANDOM 190 mg/dL (74-106); POTASSIUM,K 3.7 mmol/L (3.6-5.2); SODIUM,NA 139 mmol/L (140-148)
[2024-08-10 10:47] LABS: ANION GAP 13.7 mmol/L (5.0-14.0)
[2024-08-10 10:48] LABS: C-REACTIVE PROTEIN < 0.50 mg/dL (<0.50); MAGNESIUM 1.9 mg/dL (1.8-2.4)
[2024-08-10] MEDS: MVI, Adult with Vitamin K 10 ML, Thiamine 100 MG, Folic Acid 1 MG, Magnesium Sulfate 3 ... IV SCH (10:57)
[2024-08-10] MEDS: HYDROmorphone 1 MG/ML Syringe IVPUSH ONE (10:59)
[2024-08-10] MEDS: Promethazine 12.5 MG in Sodium Chloride 0.9% 50 ML IV ONE ×2 (11:05→11:16)
[2024-08-10] MEDS: Promethazine 25 MG/ML SDV ONE (11:15)
[2024-08-10] MEDS: Prochlorperazine 10 MG/2 ML SDV IVPUSH ONE (11:16)
[2024-08-10] MEDS: Ondansetron 4 MG/2 ML SDV IVPUSH ONE (11:17)
[2024-08-10] MEDS: Alum Hydrox/Mag Hydrox/Simeth 15 ML, Lidocaine 2% 15 ML PO ONE (11:49)
[2024-08-10 12:19] LABS: APPEARANCE,URINE CLEAR (CLEAR); BILIRUBIN,URINE NEGATIVE (NEGATIVE); COLOR,URINE YELLOW (YELLOW); GLUCOSE,URINE NEGATIVE (NEGATIVE); KETONES,URINE NEGATIVE (NEGATIVE); LEUKOCYTE ESTERASE,URINE NEGATIVE (NEGATIVE); NITRITE,URINE NEGATIVE (NEGATIVE); OCCULT BLOOD,URINE NEGATIVE (NEGATIVE); PROTEIN,URINE NEGATIVE (NEGATIVE); UROBILINOGEN,URINE 0.2 EU/dL (0.2-1.0)
[2024-08-10 12:27] LABS: BENZODIAZEPINES SCREEN,URINE PRESUMPTIVE POSITIVE (NEGATIVE); METHADONE SCREEN, URINE NEGATIVE (NEGATIVE); METHAMPHETAMINES SCREEN, URINE NEGATIVE (NEGATIVE); THC SCREEN,URINE 50 NG/ML PRESUMPTIVE POSITIVE (NEGATIVE)
[2024-08-10 12:28] LABS: AMORPHOUS SEDIMENT,URINE NOT SEEN; AMPHETAMINES SCREEN, URINE NEGATIVE (NEGATIVE); BACTERIA,URINE RARE; BARBITURATE SCREEN,URINE NEGATIVE (NEGATIVE); EPITHELIAL CELLS,URINE NOT SEEN; MUCUS,URINE NOT SEEN; OXYCODONE SCREEN,URINE NEGATIVE (NEGATIVE); PROPOXYPHENE SCREEN,URINE NEGATIVE (NEGATIVE); RBC,URINE 0-5 (0-5); WBC,URINE 0-5 (0-5)
== END 2024-08-10 12:15 | disposition home or self-care (01) ==
LOC: JP.ED 10:02
DX: K52.9 Noninfective gastroenteritis and colitis, unspecified (principal); I25.10 Atherosclerotic heart disease of native coronary artery without angina pectoris; E78.00 Pure hypercholesterolemia, unspecified; E11.40 Type 2 diabetes mellitus with diabetic neuropathy, unspecified; K21.9 Gastro-esophageal reflux disease without esophagitis; Z95.1 Presence of aortocoronary bypass graft; Z79.4 Long term (current) use of insulin; Z79.899 Other long term (current) drug therapy; Z79.82 Long term (current) use of aspirin
CPT/HCPCS: 36415; 74018; 80053; 80305; 80307; 81001; 82009; 82150; 83605; 83690; 83735; 85025; 86140; 96365; 96368; 96375; 99284; A9270; J1171; J2550; J3411; J3490; J7030

== ENCOUNTER 2024-08-14 18:33 | Emergency (ER) | payer MEDICAID ==
[2024-08-14] MEDS: LORazepam 2 MG/ML SDV IM ONE (21:53)
[2024-08-14] MEDS: HYDROmorphone 1 MG/ML Syringe IM ONE (21:53)
[2024-08-14] MEDS: oxyCODONE 5 MG Tab PO ONE (21:54)
== END 2024-08-14 22:05 | disposition home or self-care (01) ==
LOC: JP.ED 18:33
DX: Z76.0 Encounter for issue of repeat prescription (principal); I25.10 Atherosclerotic heart disease of native coronary artery without angina pectoris; E78.00 Pure hypercholesterolemia, unspecified; K21.9 Gastro-esophageal reflux disease without esophagitis; E11.42 Type 2 diabetes mellitus with diabetic polyneuropathy; F17.210 Nicotine dependence, cigarettes, uncomplicated; Z90.49 Acquired absence of other specified parts of digestive tract; Z79.4 Long term (current) use of insulin; Z79.82 Long term (current) use of aspirin; Z79.899 Other long term (current) drug therapy
CPT/HCPCS: 96372; 99281; A9270; J1171; J2060

== ENCOUNTER 2024-08-15 04:20 | Emergency (ER) | payer MEDICAID ==
[2024-08-15] MEDS: oxyCODONE 5 MG Tab PO ONE (04:49)
== END 2024-08-15 04:51 | disposition home or self-care (01) ==
LOC: JP.ED 04:20
DX: G89.4 Chronic pain syndrome (principal); I25.10 Atherosclerotic heart disease of native coronary artery without angina pectoris; E78.00 Pure hypercholesterolemia, unspecified; K21.9 Gastro-esophageal reflux disease without esophagitis; E11.42 Type 2 diabetes mellitus with diabetic polyneuropathy; Z90.49 Acquired absence of other specified parts of digestive tract; Z79.4 Long term (current) use of insulin; Z79.82 Long term (current) use of aspirin; Z79.899 Other long term (current) drug therapy
CPT/HCPCS: 99283; A9270-GY

== ENCOUNTER 2024-10-23 12:04 | Emergency (ER) | payer MEDICAID ==
[2024-10-23 12:36] LABS: BASOPHILS ABSOLUTE AUTO 0.06 K/uL (0.00-0.10); BASOPHILS PERCENT AUTO 0.5 % (0.1-1.3); EOSINOPHILS ABSOLUTE AUTO 0.11 K/uL (0.00-0.40); EOSINOPHILS PERCENT AUTO 0.9 % (0.0-5.4); HEMATOCRIT 35.7 % (38.4-49.7); HEMOGLOBIN 12.1 g/dL (12.9-16.9); IMMATURE GRAN ABSOLUTE AUTO 0.05 K/uL (0.00-0.23); IMMATURE GRAN PERCENT AUTO 0.4 % (0.0-0.7); LYMPHOCYTES ABSOLUTE AUTO 1.51 K/uL (0.8-3.3); LYMPHOCYTES PERCENT AUTO 12.3 % (11.4-47.7); MEAN CORPUSCULAR HEMOGLOBIN 30.3 pg (31.6-35.5); MEAN CORPUSCULAR HGB CONC 33.9 g/dL (31.6-35.5); MEAN CORPUSCULAR VOLUME 89.3 fL (81.4-99.0); MONOCYTES ABSOLUTE AUTO 1.21 K/uL (0.20-0.90); MONOCYTES PERCENT AUTO 9.8 % (3.3-12.6); NEUTROPHILS ABSOLUTE AUTO 9.38 K/uL (1.0-7.6); NEUTROPHILS PERCENT AUTO 76.1 % (40.0-78.1); PLATELET COUNT,PLT 304 K/uL (130-375); WHITE BLOOD CELL COUNT,WBC 12.3 K/uL (3.2-11.0)
[2024-10-23 12:56] LABS: ALANINE AMINOTRANSFERASE,ALT 18 U/L (12-78); ALBUMIN 2.8 g/dL (3.4-5.0); ALKALINE PHOSPHATASE 126 U/L (46-116); ANION GAP 13.3 mmol/L (5.0-14.0); ASPARTATE AMNIOTRANSFERASE,AST 9 U/L (15-37); BILIRUBIN TOTAL 0.3 mg/dL (0.2-1.0); BLOOD UREA NITROGEN,BUN 2 mg/dL (7-18); CALCIUM 8.7 mg/dL (8.5-10.1); CARBON DIOXIDE,CO2 25 mmol/L (21-32); CHLORIDE,CL 101 mmol/L (100-108); CREATININE 0.9 mg/dL (0.8-1.3); EST CRCL DRUG DOSING (CG) 104.19 mL/min; ESTIMATED GFR 102 mL/min (>60); GLUCOSE RANDOM 298 mg/dL (74-106); POTASSIUM,K 3.3 mmol/L (3.6-5.2); PROTEIN TOTAL,TP 5.7 g/dL (6.4-8.2); SODIUM,NA 136 mmol/L (140-148)
[2024-10-23] MEDS: Sodium Chloride 0.9% 1,000 ML IV ONE (13:14)
[2024-10-23] MEDS: Promethazine 6.25 MG in Sodium Chloride 0.9% 50 ML IV ONE (13:14)
[2024-10-23] MEDS: HYDROmorphone 0.5 MG/0.5 ML Syringe IVPUSH ONE ×2 (14:00→15:43)
[2024-10-23] MEDS: Iopamidol 612 MG/ML 500 ML Multipack Bottle IV ONE (14:14)
[2024-10-23] MEDS: Sodium Chloride 0.9% 80 ML IV SCH (14:14)
[2024-10-23] MEDS: Sodium Chloride 0.9% 10 ML Syringe FLUSH PRN (14:14)
[2024-10-23 14:45] LABS: APPEARANCE,URINE CLEAR (CLEAR); BILIRUBIN,URINE NEGATIVE (NEGATIVE); COLOR,URINE YELLOW (YELLOW); GLUCOSE,URINE 500 mg/dL (NEGATIVE); KETONES,URINE NEGATIVE (NEGATIVE); LEUKOCYTE ESTERASE,URINE NEGATIVE (NEGATIVE); NITRITE,URINE NEGATIVE (NEGATIVE); OCCULT BLOOD,URINE NEGATIVE (NEGATIVE); PH,URINE 6.5 (5.0-8.0); PROTEIN,URINE NEGATIVE (NEGATIVE); UROBILINOGEN,URINE 0.2 EU/dL (0.2-1.0)
[2024-10-23 14:55] LABS: AMORPHOUS SEDIMENT,URINE NOT SEEN; BACTERIA,URINE NOT SEEN; EPITHELIAL CELLS,URINE RARE; MUCUS,URINE NOT SEEN; RBC,URINE 0-5 (0-5); WBC,URINE 0-5 (0-5)
[2024-10-23] MEDS: Sodium Chloride 0.9% 10 ML SDV FLUSH ONE (15:43)
[2024-10-23] MEDS: Ondansetron 4 MG/2 ML SDV IVPUSH ONE (15:43)
== END 2024-10-23 16:50 | disposition home or self-care (01) ==
LOC: JP.ED 12:04
DX: R10.84 Generalized abdominal pain (principal); E87.6 Hypokalemia; I25.10 Atherosclerotic heart disease of native coronary artery without angina pectoris; I10 Essential (primary) hypertension; E78.00 Pure hypercholesterolemia, unspecified; K21.9 Gastro-esophageal reflux disease without esophagitis; Z90.49 Acquired absence of other specified parts of digestive tract; Z79.899 Other long term (current) drug therapy
CPT/HCPCS: 36415; 74177; 74177-26; 80053; 81001; 82009; 82150; 82800; 82947; 83605; 83690; 84484; 85025; 93005; 93010; 96361; 96365; 96375; 96376; 99284; 99284-25; J2405; J2550; J7030; Q9967

== ENCOUNTER 2024-11-12 06:03 | Day surgery (SDC) | payer MEDICAID ==
[2024-11-12] MEDS ORDERED: Lactated Ringers 1,000 ML IV SCH (06:45)
[2024-11-12] MEDS ORDERED: Nozin Nasal Sanitizer NASBOTH ONE (06:45)
[2024-11-12 06:46] LABS: BASOPHILS ABSOLUTE AUTO 0.08 K/uL (0.00-0.10); BASOPHILS PERCENT AUTO 0.7 % (0.1-1.3); EOSINOPHILS ABSOLUTE AUTO 0.05 K/uL (0.00-0.40); EOSINOPHILS PERCENT AUTO 0.4 % (0.0-5.4); HEMATOCRIT 40.7 % (38.4-49.7); HEMOGLOBIN 13.5 g/dL (12.9-16.9); IMMATURE GRAN ABSOLUTE AUTO 0.05 K/uL (0.00-0.23); IMMATURE GRAN PERCENT AUTO 0.4 % (0.0-0.7); LYMPHOCYTES ABSOLUTE AUTO 1.41 K/uL (0.8-3.3); LYMPHOCYTES PERCENT AUTO 12.2 % (11.4-47.7); MEAN CORPUSCULAR HEMOGLOBIN 29.9 pg (31.6-35.5); MEAN CORPUSCULAR HGB CONC 33.2 g/dL (31.6-35.5); MONOCYTES ABSOLUTE AUTO 1.01 K/uL (0.20-0.90); MONOCYTES PERCENT AUTO 8.7 % (3.3-12.6); NEUTROPHILS ABSOLUTE AUTO 8.98 K/uL (1.0-7.6); NEUTROPHILS PERCENT AUTO 77.6 % (40.0-78.1); PLATELET COUNT,PLT 325 K/uL (130-375); RED BLOOD CELL COUNT 4.52 M/uL (4.14-5.76); WHITE BLOOD CELL COUNT,WBC 11.6 K/uL (3.2-11.0)
[2024-11-12] MEDS ORDERED: Bupivacaine 0.5% 30 ML SDV ONE (06:56)
[2024-11-12 07:07] LABS: A/G RATIO 0.8 (1.2-2.2); ALANINE AMINOTRANSFERASE,ALT 13 U/L (12-78); ALBUMIN 2.8 g/dL (3.4-5.0); ALKALINE PHOSPHATASE 145 U/L (46-116); AMYLASE 22 U/L (25-115); ASPARTATE AMNIOTRANSFERASE,AST 16 U/L (15-37); BILIRUBIN TOTAL 0.6 mg/dL (0.2-1.0); BLOOD UREA NITROGEN,BUN 6 mg/dL (7-18); CALCIUM 8.4 mg/dL (8.5-10.1); CARBON DIOXIDE,CO2 26 mmol/L (21-32); CHLORIDE,CL 103 mmol/L (100-108); CREATININE 1.1 mg/dL (0.8-1.3); EST CRCL DRUG DOSING (CG) 85.24 mL/min; ESTIMATED GFR 80 mL/min (>60); GLUCOSE RANDOM 232 mg/dL (74-106); POTASSIUM,K 4.4 mmol/L (3.6-5.2); PROTEIN TOTAL,TP 6.3 g/dL (6.4-8.2); SODIUM,NA 138 mmol/L (140-148)
[2024-11-12 07:10] LABS: ANION GAP 13.4 mmol/L (5.0-14.0)
[2024-11-12] MEDS ORDERED: ceFAZolin 2 GM in Premix Bag 1 BAG IV ONE (07:30)
== END 2024-11-12 07:53 | disposition home or self-care (01) ==
LOC: JP.SDS 06:03
PROVIDERS: ATTEND Specialist
DX: M22.41 Chondromalacia patellae, right knee (principal); Z53.8 Procedure and treatment not carried out for other reasons
CPT/HCPCS: 36415; 80053; 82150; 83690; 85025; J0665

== ENCOUNTER 2024-12-15 09:27 | Emergency (ER) | payer MEDICAID ==
[2024-12-15] MEDS: fentaNYL 100 MCG/2 ML SDV NASBOTH ONE (10:29)
== END 2024-12-15 11:08 | disposition home or self-care (01) ==
LOC: JP.ED 09:27
DX: S80.01XA Contusion of right knee, initial encounter (principal); E78.00 Pure hypercholesterolemia, unspecified; I25.10 Atherosclerotic heart disease of native coronary artery without angina pectoris; E11.9 Type 2 diabetes mellitus without complications; K21.9 Gastro-esophageal reflux disease without esophagitis; Z86.16 Personal history of COVID-19; Z90.49 Acquired absence of other specified parts of digestive tract; Z79.899 Other long term (current) drug therapy; Z79.4 Long term (current) use of insulin; Z79.82 Long term (current) use of aspirin; X50.9XXA Other and unspecified overexertion or strenuous movements or postures, initial encounter
CPT/HCPCS: 73560; 99284; J3010

== ENCOUNTER 2025-03-04 01:25 | Emergency (ER) | payer MEDICAID ==
[2025-03-04 02:13] LABS: BASOPHILS PERCENT AUTO 0.1 % (0.1-1.3); EOSINOPHILS PERCENT AUTO 0.0 % (0.0-5.4); IMMATURE GRAN ABSOLUTE AUTO 0.04 K/uL (0.00-0.23); IMMATURE GRAN PERCENT AUTO 0.4 % (0.0-0.7); LYMPHOCYTES ABSOLUTE AUTO 0.39 K/uL (0.8-3.3); LYMPHOCYTES PERCENT AUTO 3.9 % (11.4-47.7); MONOCYTES ABSOLUTE AUTO 0.15 K/uL (0.20-0.90); MONOCYTES PERCENT AUTO 1.5 % (3.3-12.6); NEUTROPHILS ABSOLUTE AUTO 9.52 K/uL (1.0-7.6); NEUTROPHILS PERCENT AUTO 94.1 % (40.0-78.1); PLATELET COUNT,PLT 335 K/uL (130-375); RED BLOOD CELL COUNT 4.48 M/uL (4.14-5.76); WHITE BLOOD CELL COUNT,WBC 10.1 K/uL (3.2-11.0)
[2025-03-04 02:14] LABS: BASOPHILS ABSOLUTE AUTO 0.01 K/uL (0.00-0.10); EOSINOPHILS ABSOLUTE AUTO 0.00 K/uL (0.00-0.40)
[2025-03-04] MEDS: fentaNYL 100 MCG/2 ML SDV IVPUSH ONE (02:22)
[2025-03-04 02:30] LABS: A/G RATIO 0.9 (1.2-2.2); ALANINE AMINOTRANSFERASE,ALT 20 U/L (12-78); ASPARTATE AMNIOTRANSFERASE,AST 12 U/L (15-37); BILIRUBIN TOTAL 0.2 mg/dL (0.2-1.0); BLOOD UREA NITROGEN,BUN 5 mg/dL (7-18); CARBON DIOXIDE,CO2 24 mmol/L (21-32); CHLORIDE,CL 101 mmol/L (100-108); CREATININE 1.1 mg/dL (0.8-1.3); EST CRCL DRUG DOSING (CG) 81.77 mL/min; ESTIMATED GFR 80 mL/min (>60); POTASSIUM,K 3.8 mmol/L (3.6-5.2); PROTEIN TOTAL,TP 6.9 g/dL (6.4-8.2); SODIUM,NA 136 mmol/L (140-148)
[2025-03-04 02:31] LABS: GLUCOSE RANDOM 598 mg/dL (74-106)
[2025-03-04] MEDS: Iopamidol 612 MG/ML 100 ML Bottle IV ONE (02:51)
[2025-03-04] MEDS: Sodium Chloride 0.9% 10 ML Syringe FLUSH PRN (02:51)
[2025-03-04] MEDS: Sodium Chloride 0.9% 10 ML Syringe FLUSH ONE ×2 (04:00→08:27)
[2025-03-04] MEDS: Iopamidol 755 Mg/ML 100 ML Bottle IV ONE (04:00)
[2025-03-04 07:41] LABS: APPEARANCE,URINE CLEAR (CLEAR); GLUCOSE,URINE 500 mg/dL (NEGATIVE); OCCULT BLOOD,URINE NEGATIVE (NEGATIVE)
[2025-03-04 07:46] LABS: SQUAMOUS EPITHELIAL CELLS,UR NOT SEEN /HPF
== END 2025-03-04 10:14 | disposition home or self-care (01) ==
LOC: JP.ED 01:25
DX: R10.84 Generalized abdominal pain (principal); I74.3 Embolism and thrombosis of arteries of the lower extremities; I25.810 Atherosclerosis of coronary artery bypass graft(s) without angina pectoris; K21.9 Gastro-esophageal reflux disease without esophagitis; E11.9 Type 2 diabetes mellitus without complications; F17.200 Nicotine dependence, unspecified, uncomplicated; Z79.82 Long term (current) use of aspirin; Z79.4 Long term (current) use of insulin; Z79.899 Other long term (current) drug therapy; Z86.16 Personal history of COVID-19; Z90.49 Acquired absence of other specified parts of digestive tract
CPT/HCPCS: 36415; 74177; 75635; 80053; 81001; 82150; 82947; 83605; 83690; 85025; 85379; 86140; 96361; 96374; 96375; 96376; 99284; J1171; J1790; J3010; J7030; Q9967

== ENCOUNTER 2025-03-05 12:44 | Emergency (ER) | payer MEDICAID ==
[2025-03-05 13:45] LABS: BASOPHILS ABSOLUTE AUTO 0.04 K/uL (0.00-0.10); BASOPHILS PERCENT AUTO 0.5 % (0.1-1.3); EOSINOPHILS ABSOLUTE AUTO 0.07 K/uL (0.00-0.40); EOSINOPHILS PERCENT AUTO 0.8 % (0.0-5.4); IMMATURE GRAN PERCENT AUTO 0.2 % (0.0-0.7); LYMPHOCYTES ABSOLUTE AUTO 2.76 K/uL (0.8-3.3); LYMPHOCYTES PERCENT AUTO 31.1 % (11.4-47.7); MONOCYTES ABSOLUTE AUTO 0.96 K/uL (0.20-0.90); MONOCYTES PERCENT AUTO 10.8 % (3.3-12.6); NEUTROPHILS ABSOLUTE AUTO 5.03 K/uL (1.0-7.6); NEUTROPHILS PERCENT AUTO 56.6 % (40.0-78.1); PLATELET COUNT,PLT 335 K/uL (130-375); RED BLOOD CELL COUNT 4.93 M/uL (4.14-5.76); WHITE BLOOD CELL COUNT,WBC 8.9 K/uL (3.2-11.0)
[2025-03-05 13:47] LABS: IMMATURE GRAN ABSOLUTE AUTO 0.02 K/uL (0.00-0.23)
[2025-03-05 14:04] LABS: A/G RATIO 0.9 (1.2-2.2); ALANINE AMINOTRANSFERASE,ALT 28 U/L (12-78); ASPARTATE AMNIOTRANSFERASE,AST 18 U/L (15-37); BILIRUBIN TOTAL 0.4 mg/dL (0.2-1.0); BLOOD UREA NITROGEN,BUN 5 mg/dL (7-18); CARBON DIOXIDE,CO2 32 mmol/L (21-32); CHLORIDE,CL 106 mmol/L (100-108); CREATININE 0.7 mg/dL (0.8-1.3); EST CRCL DRUG DOSING (CG) 128.49 mL/min; ESTIMATED GFR 110 mL/min (>60); GLUCOSE RANDOM 220 mg/dL (74-106); POTASSIUM,K 3.7 mmol/L (3.6-5.2); PROTEIN TOTAL,TP 7.0 g/dL (6.4-8.2); SODIUM,NA 145 mmol/L (140-148)
[2025-03-05 14:23] LABS: TROPONIN I HIGH SENSITIVITY 12.2 pg/mL (<=60.3)
[2025-03-05] MEDS: fentaNYL 50 MCG/ML SDV IM ONE (15:24)
[2025-03-05] MEDS: fentaNYL 100 MCG/2 ML SDV IVPUSH ONE (15:29)
[2025-03-05] MEDS: Lactated Ringers 1,000 ML IV SCH (16:36)
[2025-03-05] MEDS ORDERED: Naloxone 0.4 MG/ML SDV IVPUSH PRN (17:34)
== END 2025-03-05 19:35 | disposition home or self-care (01) ==
LOC: JP.ED 12:44
DX: R10.84 Generalized abdominal pain (principal); E78.00 Pure hypercholesterolemia, unspecified; K21.9 Gastro-esophageal reflux disease without esophagitis; F17.200 Nicotine dependence, unspecified, uncomplicated; E11.9 Type 2 diabetes mellitus without complications; Z79.899 Other long term (current) drug therapy; Z79.4 Long term (current) use of insulin; Z86.16 Personal history of COVID-19
CPT/HCPCS: 36415; 71046; 80053; 83690; 84484; 85025; 93005; 96361; 96374; 96375; 96376; 99285; J1171; J1790; J3010; J7120; 93010; 99284

== ENCOUNTER 2025-03-06 09:05 | Emergency (ER) | payer MEDICAID ==
[2025-03-06 09:24] LABS: BASOPHILS ABSOLUTE AUTO 0.06 K/uL (0.00-0.10); BASOPHILS PERCENT AUTO 0.6 % (0.1-1.3); EOSINOPHILS ABSOLUTE AUTO 0.18 K/uL (0.00-0.40); EOSINOPHILS PERCENT AUTO 1.7 % (0.0-5.4); IMMATURE GRAN ABSOLUTE AUTO 0.03 K/uL (0.00-0.23); IMMATURE GRAN PERCENT AUTO 0.3 % (0.0-0.7); LYMPHOCYTES ABSOLUTE AUTO 2.19 K/uL (0.8-3.3); LYMPHOCYTES PERCENT AUTO 20.4 % (11.4-47.7); MONOCYTES ABSOLUTE AUTO 1.16 K/uL (0.20-0.90); MONOCYTES PERCENT AUTO 10.8 % (3.3-12.6); NEUTROPHILS ABSOLUTE AUTO 7.11 K/uL (1.0-7.6); NEUTROPHILS PERCENT AUTO 66.2 % (40.0-78.1); PLATELET COUNT,PLT 338 K/uL (130-375); RED BLOOD CELL COUNT 4.87 M/uL (4.14-5.76); WHITE BLOOD CELL COUNT,WBC 10.7 K/uL (3.2-11.0)
[2025-03-06 09:40] LABS: INR 1.0
[2025-03-06 09:43] LABS: A/G RATIO 0.9 (1.2-2.2); ALANINE AMINOTRANSFERASE,ALT 27 U/L (12-78); ASPARTATE AMNIOTRANSFERASE,AST 19 U/L (15-37); BILIRUBIN TOTAL 0.2 mg/dL (0.2-1.0); BLOOD UREA NITROGEN,BUN 5 mg/dL (7-18); CARBON DIOXIDE,CO2 33 mmol/L (21-32); CHLORIDE,CL 103 mmol/L (100-108); CREATININE 0.7 mg/dL (0.8-1.3); EST CRCL DRUG DOSING (CG) 128.49 mL/min; ESTIMATED GFR 110 mL/min (>60); GLUCOSE RANDOM 186 mg/dL (74-106); POTASSIUM,K 3.5 mmol/L (3.6-5.2); PROTEIN TOTAL,TP 6.8 g/dL (6.4-8.2); SODIUM,NA 141 mmol/L (140-148)
[2025-03-06] MEDS: Sodium Chloride 0.9% 10 ML Syringe FLUSH PRN (10:06)
[2025-03-06] MEDS: Iopamidol 755 Mg/ML 100 ML Bottle IV SCH (10:06)
== END 2025-03-06 10:40 | disposition home or self-care (01) ==
LOC: JP.ED 09:05
DX: R10.84 Generalized abdominal pain (principal); R04.2 Hemoptysis; F19.20 Other psychoactive substance dependence, uncomplicated; K21.9 Gastro-esophageal reflux disease without esophagitis; E78.00 Pure hypercholesterolemia, unspecified; Z79.899 Other long term (current) drug therapy; Z79.82 Long term (current) use of aspirin; Z79.4 Long term (current) use of insulin; Z86.16 Personal history of COVID-19; Z90.49 Acquired absence of other specified parts of digestive tract
CPT/HCPCS: 36415; 71275; 80053; 84484; 85025; 85610; 93005; 99285; Q9967

== ENCOUNTER 2025-03-06 11:10 | Emergency (ER) | payer MEDICAID ==
[2025-03-06] MEDS: Alum Hydrox/Mag Hydrox/Simeth 15 ML, Lidocaine 2% 15 ML PO ONE (11:34)
== END 2025-03-06 12:09 | disposition home or self-care (01) ==
LOC: JP.ED 11:10
DX: K59.00 Constipation, unspecified (principal); E78.00 Pure hypercholesterolemia, unspecified; E11.9 Type 2 diabetes mellitus without complications; K21.9 Gastro-esophageal reflux disease without esophagitis; Z79.4 Long term (current) use of insulin; Z79.82 Long term (current) use of aspirin; Z79.899 Other long term (current) drug therapy; Z86.16 Personal history of COVID-19; Z90.49 Acquired absence of other specified parts of digestive tract
CPT/HCPCS: 96374; 99284; A9270; J1790; J3490; J7030

== ENCOUNTER 2025-03-07 08:53 | Emergency (ER) | payer MEDICAID ==
[2025-03-07 11:13] LABS: BASOPHILS ABSOLUTE AUTO 0.05 K/uL (0.00-0.10); BASOPHILS PERCENT AUTO 0.8 % (0.1-1.3); EOSINOPHILS ABSOLUTE AUTO 0.06 K/uL (0.00-0.40); EOSINOPHILS PERCENT AUTO 1.0 % (0.0-5.4); IMMATURE GRAN PERCENT AUTO 0.2 % (0.0-0.7); LYMPHOCYTES ABSOLUTE AUTO 2.10 K/uL (0.8-3.3); LYMPHOCYTES PERCENT AUTO 33.4 % (11.4-47.7); MONOCYTES ABSOLUTE AUTO 0.67 K/uL (0.20-0.90); MONOCYTES PERCENT AUTO 10.7 % (3.3-12.6); NEUTROPHILS ABSOLUTE AUTO 3.40 K/uL (1.0-7.6); NEUTROPHILS PERCENT AUTO 53.9 % (40.0-78.1); PLATELET COUNT,PLT 296 K/uL (130-375); RED BLOOD CELL COUNT 5.13 M/uL (4.14-5.76); WHITE BLOOD CELL COUNT,WBC 6.3 K/uL (3.2-11.0)
[2025-03-07 11:16] LABS: IMMATURE GRAN ABSOLUTE AUTO 0.01 K/uL (0.00-0.23)
[2025-03-07] MEDS: Ondansetron 4 MG/2 ML SDV IVPUSH ONE (11:20)
[2025-03-07] MEDS: Ketorolac 30 MG/ML SDV IVPUSH ONE (11:21)
[2025-03-07] MEDS: Alum Hydrox/Mag Hydrox/Simeth 15 ML, Lidocaine 2% 15 ML PO ONE (11:22)
[2025-03-07] MEDS: Lactated Ringers 1,000 ML IV SCH (11:31)
[2025-03-07 11:37] LABS: A/G RATIO 0.9 (1.2-2.2); ALANINE AMINOTRANSFERASE,ALT 28 U/L (12-78); ASPARTATE AMNIOTRANSFERASE,AST 18 U/L (15-37); BILIRUBIN TOTAL 0.8 mg/dL (0.2-1.0); BLOOD UREA NITROGEN,BUN 8 mg/dL (7-18); CARBON DIOXIDE,CO2 28 mmol/L (21-32); CHLORIDE,CL 104 mmol/L (100-108); CREATININE 0.8 mg/dL (0.8-1.3); EST CRCL DRUG DOSING (CG) 111.97 mL/min; ESTIMATED GFR 105 mL/min (>60); GLUCOSE RANDOM 208 mg/dL (74-106); POTASSIUM,K 4.0 mmol/L (3.6-5.2); PROTEIN TOTAL,TP 6.9 g/dL (6.4-8.2); SODIUM,NA 140 mmol/L (140-148)
[2025-03-07 13:23] LABS: APPEARANCE,URINE CLEAR (CLEAR); GLUCOSE,URINE NEGATIVE (NEGATIVE); OCCULT BLOOD,URINE NEGATIVE (NEGATIVE)
== END 2025-03-07 14:12 | disposition home or self-care (01) ==
LOC: JP.ED 08:53
DX: E86.0 Dehydration (principal); R11.2 Nausea with vomiting, unspecified; F17.200 Nicotine dependence, unspecified, uncomplicated; I10 Essential (primary) hypertension; E78.00 Pure hypercholesterolemia, unspecified; I25.810 Atherosclerosis of coronary artery bypass graft(s) without angina pectoris; E11.9 Type 2 diabetes mellitus without complications; K21.9 Gastro-esophageal reflux disease without esophagitis; Z79.82 Long term (current) use of aspirin; Z79.4 Long term (current) use of insulin; Z79.899 Other long term (current) drug therapy; Z86.16 Personal history of COVID-19; Z90.49 Acquired absence of other specified parts of digestive tract
CPT/HCPCS: 36415; 80053; 81003; 84484; 85025; 93005; 96361; 96374; 96375; 99285; A9270; J1171; J1790; J1885; J2405; J3490; J7120; 93010; 99284

== ENCOUNTER 2025-04-01 08:40 | Emergency (ER) | payer MEDICAID ==
[2025-04-01] MEDS ORDERED: Naloxone 0.4 MG/ML SDV IVPUSH PRN (09:04)
[2025-04-01 09:17] LABS: BASOPHILS ABSOLUTE AUTO 0.05 K/uL (0.00-0.10); BASOPHILS PERCENT AUTO 0.4 % (0.1-1.3); EOSINOPHILS ABSOLUTE AUTO 0.03 K/uL (0.00-0.40); EOSINOPHILS PERCENT AUTO 0.3 % (0.0-5.4); IMMATURE GRAN ABSOLUTE AUTO 0.07 K/uL (0.00-0.23); IMMATURE GRAN PERCENT AUTO 0.6 % (0.0-0.7); LYMPHOCYTES ABSOLUTE AUTO 1.19 K/uL (0.8-3.3); LYMPHOCYTES PERCENT AUTO 10.6 % (11.4-47.7); MONOCYTES ABSOLUTE AUTO 0.71 K/uL (0.20-0.90); MONOCYTES PERCENT AUTO 6.3 % (3.3-12.6); NEUTROPHILS ABSOLUTE AUTO 9.17 K/uL (1.0-7.6); NEUTROPHILS PERCENT AUTO 81.8 % (40.0-78.1); PLATELET COUNT,PLT 364 K/uL (130-375); RED BLOOD CELL COUNT 5.28 M/uL (4.14-5.76); WHITE BLOOD CELL COUNT,WBC 11.2 K/uL (3.2-11.0)
[2025-04-01 09:18] LABS: BASE EXCESS VENOUS -2.1 mm/L; BICARBONATE,VENOUS 22.4 mmol/L; O2 SATURATION VENOUS 64.4; OXYHEMOGLOBIN 61.2 %; PCO2 VENOUS 39.4 mm/Hg; PH,VENOUS 7.373 (7.350-7.450); TOTAL HEMOGLOBIN 16.2 g/dL (13.5-18.0)
[2025-04-01 09:21] LABS: PO2 VENOUS 37.0 mm/Hg
[2025-04-01 09:44] LABS: A/G RATIO 1.0 (1.2-2.2); ALANINE AMINOTRANSFERASE,ALT 26 U/L (12-78); ASPARTATE AMNIOTRANSFERASE,AST 18 U/L (15-37); BILIRUBIN TOTAL 0.7 mg/dL (0.2-1.0); BLOOD UREA NITROGEN,BUN 8 mg/dL (7-18); CARBON DIOXIDE,CO2 25 mmol/L (21-32); CHLORIDE,CL 101 mmol/L (100-108); CREATININE 0.9 mg/dL (0.8-1.3); EST CRCL DRUG DOSING (CG) 102.99 mL/min; ESTIMATED GFR 101 mL/min (>60); GLUCOSE RANDOM 259 mg/dL (74-106); POTASSIUM,K 3.7 mmol/L (3.6-5.2); PROTEIN TOTAL,TP 7.5 g/dL (6.4-8.2); SODIUM,NA 139 mmol/L (140-148)
[2025-04-01 09:48] LABS: CREATINE KINASE,CK 50 U/L (39-308); TROPONIN I HIGH SENSITIVITY 8.2 pg/mL (<=60.3)
[2025-04-01 10:40] LABS: CORONAVIRUS COVID-19 NAA NEGATIVE (NEGATIVE); INFLUENZA A NAA NEGATIVE (NEGATIVE); INFLUENZA B NAA NEGATIVE (NEGATIVE); RESPIRATORY SYNCYTIAL VIR NAA NEGATIVE (NEGATIVE)
[2025-04-01] MEDS: Ondansetron 4 MG Tab.DIS PO ONE (10:49)
[2025-04-01] MEDS: Morphine 15 MG Tab.ER PO ONE (10:49)
[2025-04-01] MEDS ORDERED: Naloxone 0.4 MG/ML SDV NAS PRN (11:04)
[2025-04-01] MEDS: Prochlorperazine 10 MG/2 ML SDV IM ONE (11:28)
[2025-04-02] MEDS: Promethazine 25 MG/ML SDV ONE (09:47)
== END 2025-04-01 12:31 | disposition home or self-care (01) ==
LOC: JP.ED 08:40
DX: R10.9 Unspecified abdominal pain (principal); E78.00 Pure hypercholesterolemia, unspecified; I25.10 Atherosclerotic heart disease of native coronary artery without angina pectoris; I25.2 Old myocardial infarction; K21.9 Gastro-esophageal reflux disease without esophagitis; E11.9 Type 2 diabetes mellitus without complications; G89.29 Other chronic pain; Z79.899 Other long term (current) drug therapy; Z79.82 Long term (current) use of aspirin; Z79.4 Long term (current) use of insulin; Z86.16 Personal history of COVID-19; Z90.49 Acquired absence of other specified parts of digestive tract; Z95.1 Presence of aortocoronary bypass graft
CPT/HCPCS: 36415; 74018; 74018-26; 80053; 80307; 82550; 82803; 83605; 83690; 83735; 84484; 85025; 86140; 87637; 93005; 93010; 96361; 96365; 96372; 96375; 99284; 99285-25; A9270-GY; J0780; J1171; J2550; J7030; Q0162

== ENCOUNTER 2025-05-08 10:38 | Emergency (ER) | payer MEDICAID ==
[2025-05-08] MEDS: diphenhydrAMINE 50 MG/ML SDV IM ONE (11:38)
== END 2025-05-08 13:05 | disposition home or self-care (01) ==
LOC: JP.ED 10:38
DX: R10.13 Epigastric pain (principal); R11.2 Nausea with vomiting, unspecified; E78.00 Pure hypercholesterolemia, unspecified; K21.9 Gastro-esophageal reflux disease without esophagitis; E11.9 Type 2 diabetes mellitus without complications; Z79.899 Other long term (current) drug therapy; Z79.82 Long term (current) use of aspirin; Z79.4 Long term (current) use of insulin; Z86.16 Personal history of COVID-19; Z90.49 Acquired absence of other specified parts of digestive tract
CPT/HCPCS: 96372; 99284; J1200; J1790

== ENCOUNTER 2025-07-17 02:37 | Emergency (ER) | payer MEDICAID ==
[2025-07-17 03:25] LABS: BASOPHILS ABSOLUTE AUTO 0.04 K/uL (0.00-0.10); BASOPHILS PERCENT AUTO 0.5 % (0.1-1.3); EOSINOPHILS ABSOLUTE AUTO 0.05 K/uL (0.00-0.40); EOSINOPHILS PERCENT AUTO 0.6 % (0.0-5.4); IMMATURE GRAN PERCENT AUTO 0.2 % (0.0-0.7); LYMPHOCYTES ABSOLUTE AUTO 1.50 K/uL (0.8-3.3); LYMPHOCYTES PERCENT AUTO 17.8 % (11.4-47.7); MONOCYTES ABSOLUTE AUTO 1.08 K/uL (0.20-0.90); MONOCYTES PERCENT AUTO 12.8 % (3.3-12.6); NEUTROPHILS ABSOLUTE AUTO 5.72 K/uL (1.0-7.6); NEUTROPHILS PERCENT AUTO 68.1 % (40.0-78.1); PLATELET COUNT,PLT 270 K/uL (130-375); RED BLOOD CELL COUNT 4.35 M/uL (4.14-5.76); WHITE BLOOD CELL COUNT,WBC 8.4 K/uL (3.2-11.0)
[2025-07-17 03:32] LABS: APPEARANCE,URINE CLEAR (CLEAR); GLUCOSE,URINE 100 mg/dL (NEGATIVE); OCCULT BLOOD,URINE NEGATIVE (NEGATIVE)
[2025-07-17 03:33] LABS: IMMATURE GRAN ABSOLUTE AUTO 0.02 K/uL (0.00-0.23)
[2025-07-17 03:36] LABS: A/G RATIO 1.1 (1.2-2.2); ALANINE AMINOTRANSFERASE,ALT 34 U/L (12-78); ASPARTATE AMNIOTRANSFERASE,AST 23 U/L (15-37); BILIRUBIN TOTAL 1.0 mg/dL (0.2-1.0); BLOOD UREA NITROGEN,BUN 11 mg/dL (7-18); CARBON DIOXIDE,CO2 25 mmol/L (21-32); CHLORIDE,CL 104 mmol/L (100-108); CREATININE 0.9 mg/dL (0.8-1.3); EST CRCL DRUG DOSING (CG) 102.99 mL/min; ESTIMATED GFR 101 mL/min (>60); GLUCOSE RANDOM 174 mg/dL (74-106); POTASSIUM,K 3.6 mmol/L (3.6-5.2); PROTEIN TOTAL,TP 6.4 g/dL (6.4-8.2); SODIUM,NA 141 mmol/L (140-148)
[2025-07-17 03:39] LABS: AMPHETAMINES SCREEN, URINE NEGATIVE (NEGATIVE); METHADONE SCREEN, URINE NEGATIVE (NEGATIVE); METHAMPHETAMINES SCREEN, URINE NEGATIVE (NEGATIVE); OXYCODONE SCREEN,URINE PRESUMPTIVE POSITIVE (NEGATIVE); PROPOXYPHENE SCREEN,URINE NEGATIVE (NEGATIVE); THC SCREEN,URINE 50 NG/ML PRESUMPTIVE POSITIVE (NEGATIVE)
[2025-07-17] MEDS: Prochlorperazine 10 MG/2 ML SDV IVPUSH ONE (03:45)
[2025-07-17] MEDS: Ketorolac 30 MG/ML SDV IVPUSH ONE (03:45)
[2025-07-17] MEDS: Sodium Chloride 0.9% 10 ML Syringe FLUSH PRN (05:13)
[2025-07-17] MEDS: Iopamidol 612 MG/ML 100 ML Bottle IV SCH (05:13)
== END 2025-07-17 06:50 | disposition home or self-care (01) ==
LOC: JP.ED 02:37
DX: R10.84 Generalized abdominal pain (principal); K21.9 Gastro-esophageal reflux disease without esophagitis; I25.2 Old myocardial infarction; I25.10 Atherosclerotic heart disease of native coronary artery without angina pectoris; E11.40 Type 2 diabetes mellitus with diabetic neuropathy, unspecified; F17.210 Nicotine dependence, cigarettes, uncomplicated; Z79.899 Other long term (current) drug therapy; Z95.5 Presence of coronary angioplasty implant and graft; Z79.82 Long term (current) use of aspirin; Z79.84 Long term (current) use of oral hypoglycemic drugs; Z79.4 Long term (current) use of insulin
CPT/HCPCS: 36415; 74177; 80053; 80305; 80307; 81003; 83690; 85025; 86140; 96361; 96374; 96375; 99284; J0780; J1885; J2470; J7030; Q9967; J1171